=== PATIENT | female | born 1935 | race Caucasian/White ===

== ENCOUNTER 2019-10-27 07:45 | Emergency (ER) | payer MEDICARE, OTHER ==
[~2019-10-27] VITALS: Ht 165.1 cm; Wt 80.0 kg
[2019-10-27 07:55] VITALS: BP 115/48
[2019-10-27] MEDS ORDERED: SODIUM CHLORIDE FLUSH 10ML SYR IVF ONE (08:00)
[2019-10-27 08:02] LABS: BASOPHILS # (AUTO) 0.05 x10^3/uL (0-0.1); BASOPHILS % (AUTO) 1 % (0-1); EOSINOPHILS % (AUTO) 1 % (1-7); LYMPHOCYTES % (AUTO) 10 % (22-44); MD NO; MEAN CORPUSCULAR HEMOGLOBIN 29.7 pg (27.0-34.8); MEAN CORPUSCULAR HGB CONC 32.9 g/dL (32.4-35.8); MEAN CORPUSCULAR VOLUME 90.3 fL (80-100); MEAN PLATELET VOLUME 7.4 fL (7.4-10.4); MONOCYTES # (AUTO) 0.94 x10^3/uL (0.2-0.8); MONOCYTES % (AUTO) 8 % (2-9); NEUTROPHILS % (AUTO) 81 % (42-75); PLATELET COUNT 227 x10^3/uL (130-400); RED BLOOD COUNT 4.59 x10^6/uL (3.82-5.3)
--- NOTE | 2019-10-27 08:13 | NUR ---
PT PLACED IN HOPSITAL GOWN, ON CARDIAC AND VITALS MONITORS. PT RESTING WITH EYES CLOSED AT THIS TIME. [facility] ONTINUE TO MONITOR.
[2019-10-27 08:18] LABS: ALBUMIN 3.4 g/dL (3.4-5.0); ANION GAP 6 mmol/L (5-15); CALCIUM 8.7 mg/dL (8.5-10.1); CHLORIDE 109 mmol/L (98-107)
[2019-10-27 08:22] LABS: TROPONIN I < 0.015 ng/mL (0.000-0.045)
[2019-10-27 09:48] LABS: MICROSCOPIC AUTO
[2019-10-27] MEDS ORDERED: LEVO25TA4 PO (09:51)
[2019-10-27] MEDS ORDERED: QUET25TA7 PO (09:51)
[2019-10-27] MEDS ORDERED: AQUAPHOR OINTMENT (09:51)
[2019-10-27] MEDS ORDERED: GABA400C PO (09:51)
--- NOTE | 2019-10-27 09:55 | NUR ---
PT FOUND WALKING IN HALLWAY NAKED. PT REDIRECTED BACK TO ROOM AND PLACED BACK IN BED. PT STATED SHE WILL REST THERE UNTIL DCd. TV TURNED ON FOR PT. WILL CONTINUE TO MONITOR.
--- NOTE | 2019-10-27 10:27 | NUR ---
REHABILITATION CONSULTANT: ACTIVITY APRON ORDERED.
--- NOTE | 2019-10-27 10:29 | NUR ---
ORACLE DEVELOPER: ED EMT TO SIT WITH PATIENT
--- NOTE | 2019-10-27 10:53 | NUR ---
ACTIVITY APRIN APPLIED. PT SITTING CALMLY IN ROOM AT THIS TIME. AWAITING TRANSPORT TO TAKE PTBACK HOME. CALLED PT DAUGHTER, NO ANSWER.
[2019-10-27] MEDS ORDERED: HYDR-826 PO (10:57)
--- NOTE | 2019-10-27 11:48 | NUR ---
PT WENT HOME WITH [employer]
== END 2019-10-27 11:50 | disposition home or self-care (01) ==
LOC: ED 07:55
DX: R41.82 Altered mental status, unspecified (principal); N39.0 Urinary tract infection, site not specified; R53.83 Other fatigue; R94.31 Abnormal electrocardiogram [ECG] [EKG]
CPT/HCPCS: 36415; 71045; 80048; 81001; 82040; 84484; 85025; 87086; 93005; 99285